=== PATIENT | female | born 1980 | race Caucasian/White ===

== ENCOUNTER 2017-05-26 12:23 | Emergency (ER) | payer MEDICAID ==
[2017-05-26] MEDS ORDERED: ONDANSETRON (ODT) 4 MG TAB ODT (14:12)
[2017-05-26] MEDS: DIAZEPAM 5 MG TAB PO (14:23)
[2017-05-26] MEDS: KETOROLAC 60 MG INJ IM (14:24)
== END 2017-05-26 15:00 | disposition home or self-care (01) ==
LOC: FTE 12:23
DX: M79.662 Pain in left lower leg (principal)
CPT/HCPCS: 96372; 99284-25

== ENCOUNTER 2018-07-24 08:51 | Emergency (ER) | payer MEDICAID | END 2018-07-24 11:24 | disposition home or self-care (01) | LOC: FTE 08:51 | DX: H92.01 Otalgia, right ear (principal) | CPT/HCPCS: 99283; Z7502 ==